=== PATIENT | female | born 1995 | race Caucasian/White ===

== ENCOUNTER 2016-11-05 18:21 | Emergency (ER) | payer SELFPAY ==
[~2016-11-05] VITALS: Ht 147.3 cm; Wt 59.5 kg
[2016-11-05 18:24] VITALS: BP 129/82; PULSE 99; TEMP 37.3; O2SAT 97; Ht 147.3 cm; Wt 59.5 kg
[2016-11-05] MEDS ORDERED: SULF800T23 PO (18:32)
[2016-11-05] MEDS ORDERED: IBUP-1050 PO (18:32)
[2016-11-05] MEDS ORDERED: OXYCODONE HCL IR 5 MG TAB (IMMEDIATE RELEASE) PO STA (18:57)
[2016-11-05] MEDS ORDERED: LIDO/EPINEPHRINE/SOD BICARB 20 ML VIAL INFIL ONE (19:00)
[2016-11-05] MEDS ORDERED: OXYC1TAB3 PO (20:03)
--- NOTE | 2016-11-05 20:04 | EMERGENCY ROOM VISIT NOTE ---
ED Visit Note First contact with patient: 18:45 CHIEF COMPLAINT: Infected cyst on tailbone 4 days HISTORY OF PRESENT ILLNESS: Patient is a 20-year-old female who presents emergency department for evaluation of a pilonidal cyst abscess. Patient states that she developed pain, redness and swelling over her T elbow and about 3 or 4 days ago. She went to [facility] on the and was placed on Bactrim. She's been taking 1 tablet twice daily since, but reports that her symptoms are worsening. She notes inability to sit comfortably, or sunlight flat on her back. She has been using ibuprofen for discomfort. She denies any fever or chills. No drainage or discharge from the area. She has never had symptoms similar to this previously. No prior history of skin infections or abscesses. REVIEW OF SYSTEMS: Review of systems as per HPI. All other systems reviewed were negative. At least 6 systems reviewed. PMH: Electronic medical records are reviewed and summarized as above/below. See Problem List. Vaccinations are up-to-date. 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 Smoker, social EtOH. PHYSICAL EXAM: Vital Signs: Reviewed Nurse's notes. CONSTITUTIONAL: Patient is a pleasant, well-appearing 20-year-old female who is awake and alert and in mild distress due to her discomfort. INTEGUMENTARY: There is a fluctuant, tender swelling at the top of the gluteal crease, left side. There is no pointing. There is some slight erythema surrounding the area, but no overt cellulitic changes. It feels like a typical subcutaneous abscess. EMERGENCY DEPARTMENT COURSE: Patient was medicated with oxycodone 10 mg orally. After saline and Betadine cleansing and lidocaine anesthesia, the abscess was incised with a number 11 scalpel blade. A large amount of foul-smelling purulent material drained and more was expressed by pressure. Culture was obtained and is pending. The abscess cavity was then probed for loculations and irrigated copiously using normal saline solution. Quarter inch plain gauze that had been dipped in Betadine was used as packing material and a dressing was applied. Patient was given an oxycodone home pack. She will finish her antibiotics as prescribed. Dressing changes daily, more often if needed. Return to the ED in 48 hours for wound recheck and packing removal. She does not have any evidence for sepsis, necrotizing fasciitis and I do not suspect osteomyelitis. The abscess is clearly at the top of the gluteal crease and does not involve the perirectal or perianal areas. Current/Historical Medications Scheduled Ibuprofen (Advil), 400 MG PO PRN UD Sulfa/Trimethoprim (Bactrim Ds 800MG/160MG), 1 TAB PO BID Scheduled PRN Oxycodone Immediate Rel Tab (Roxicodone Ir), 1-2 TAB PO Q4H PRN for Severe Pain Allergies Coded Allergies: No Known Allergies (Unverified , 11/05/16) Vital Signs Date Time Temp Pulse Resp B/P Pulse Ox O2 Delivery O2 Flow Rate FiO2 11/05/16 18:24 37.3 99 18 129/82 97 Room Air Medications Administered Medications (Trade) Dose Ordered Sig/Maddy Route Start Time Stop Time Status Last Admin Dose Admin Oxycodone HCl (Roxicodone Immediate Rel Tab) 10 mg NOW STAT PO 11/05/16 18:57 11/05/16 18:58 DC 11/05/16 19:07 10 MG Departure Information Impression Primary Impression: Pilonidal cyst with abscess Prescriptions Oxycodone Immediate Rel Tab (ROXICODONE IR) 5 Mg Tab 1-2 TAB PO Q4H Y for Severe Pain, #10 TAB For Initial Treatment Prov: Pippa Jackson PA 11/05/16 Referrals No Doctor, Assigned (PCP) Patient Instructions [facility] Additional Instructions DO NOT drive, drink alcohol, operate machinery, or perform dangerous activities today. You were given medications in the ER that can affect your ability to safely function or operate a vehicle. Oxycodone (OxyIR) 5mg: Take 1-2 pills every four hours for breakthrough pain. Avoid alcohol, operating machinery or dangerous equipment, working on ladders or roofs, DRIVING, or situations where being under the influence may be dangerous. It is recommended to use an [id number] stool softener such as Colace, 100mg twice daily while taking this medication to avoid constipation. Finish Bactrim. Ibuprofen(Motrin, Advil) may be used for fever or pain. Use 600mg every six hours as needed. Take with food. Avoid using more than 2400mg in a 24 hour period. Do not use 2400mg per day for more than three consecutive days without physician direction. Prolonged inappropriate use can lead to stomach upset or ulcers. (AND/OR) Acetaminophen(Tylenol) may be used for fever or pain. Use 1000mg every six hours as needed. Avoid using more than 3000mg in a 24 hour period. Warm compresses to the affected area 4 times daily for 15-20 minutes. Dressing changes daily, more often if it becomes saturated or soiled. May shower starting tomorrow, be careful to not remove the packing material inadvertently when bathing or changing the dressing. Rest and drink plenty of fluids. Continue current medications. Return to the ER in 48 hours for wound recheck and packing removal, immediately for severe pain, persistent fevers, spreading redness, or any worsening of your condition. Follow up with your primary physician within 2-3 days for a recheck of the current condition.
== END 2016-11-05 20:21 | disposition home or self-care (01) ==
LOC: C.EDB 18:22 → C.EDD 20:21
DX: L05.01 Pilonidal cyst with abscess (principal); F17.200 Nicotine dependence, unspecified, uncomplicated

== ENCOUNTER 2016-11-07 10:50 | Emergency (ER) | payer SELFPAY ==
[~2016-11-07] VITALS: Ht 147.3 cm; Wt 59.0 kg
[~2016-11-07 10:50] MED LIST: IBUP-1050 PO; OXYC1TAB3 PO; SULF800T23 PO
[2016-11-07 10:56] VITALS: TEMP 36.7; Ht 147.3 cm; Wt 59.0 kg
[2016-11-07 11:37] VITALS: BP 118/75; PULSE 93; O2SAT 96
--- NOTE | 2016-11-25 14:43 | EMERGENCY ROOM VISIT NOTE ---
ED Visit Note First contact with patient: 11:14 CHIEF COMPLAINT: Packing removal from pilonidal cyst HISTORY OF PRESENT ILLNESS: This 20-year-old female presents the ER for packing removal from a pilonidal cyst that was drained 2 days ago. The patient states she has been changing the bandages daily. There is minimal drainage today. She states the drain is still in place. The patient states that the pain is only there normally when she sits. She is taking the Bactrim as prescribed. This was her first pilonidal cyst. REVIEW OF SYSTEMS: 6 system review was performed and was negative unless stated otherwise in history of present illness. PMH: The patient is healthy; no change from prior ER visit SOCIAL HISTORY: Patient is a [employer] student PHYSICAL EXAM: Vital Signs: Were reviewed Reviewed Nurse's notes. GEN.: 20-year -old female appears in no acute distress. MENTAL Status: Alert and oriented 3. BUTTOCKS: There is a small incision just above the gluteal crease with packing in place. There is some firmness but no fluctuance noted no erythema noted EMERGENCY DEPARTMENT COURSE: The packing was removed. The abscess cavity was swabbed with a Q-tip with minimal drainage. Antibiotic ointment and a bandage was applied. The patient was discharged home in stable condition. DIAGNOSIS: Pilonidal cyst-abscess DISCHARGE INSTRUCTIONS AND TREATMENT: Continue antibiotics as prescribed. Keep wound covered until it is healed over. Any recurrent problems, follow-up with family doctor or return to ER. Current/Historical Medications Scheduled Sulfa/Trimethoprim (Bactrim Ds 800MG/160MG), 1 TAB PO BID Scheduled PRN Oxycodone Immediate Rel Tab (Roxicodone Ir), 1-2 TAB PO Q4H PRN for Severe Pain Allergies Coded Allergies: No Known Allergies (Unverified , 11/07/16) Vital Signs Date Time Temp Pulse Resp B/P Pulse Ox O2 Delivery O2 Flow Rate FiO2 11/07/16 11:37 93 16 118/75 96 11/07/16 10:56 36.7 107 17 112/74 95 Room Air Departure Information Referrals No Doctor, Assigned (PCP) Patient Instructions [facility]
== END 2016-11-07 11:41 | disposition home or self-care (01) ==
LOC: C.EDB 10:52 → C.EDD 11:41
DX: L05.01 Pilonidal cyst with abscess (principal); Z48.01 Encounter for change or removal of surgical wound dressing